=== PATIENT | male | born 1940 | race Caucasian/White ===

== ENCOUNTER 2021-12-26 10:24 | Inpatient (IN) | payer BC, MEDICAID ==
[~2021-12-26] VITALS: Ht 167.6 cm; Wt 61.3 kg
[2021-12-26] MEDS ORDERED: SODIUM CHLORIDE 0.9% 1000ML BAG (SEPSIS BOLUS) IV ONE (10:45)
[2021-12-26 11:27] LABS: BASOPHILS % 0.7 % (0.0-2.0); EOSINOPHILS % 2.6 % (0.0-5.0); HEMATOCRIT. 30.4 % (42.0-52.0); HEMOGLOBIN. 10.5 g/dL (14.0-18.0); LYMPHOCYTES % 12.8 % (20.0-50.0); MEAN CORPUSCULAR HEMOGLOBIN 31.8 pg (28.0-32.0); MEAN CORPUSCULAR VOLUME 91.7 fL (80.0-94.0); MEAN PLATELET VOLUME 8.1 fl (7.4-10.4); MONOCYTES % 10.3 % (2.0-8.0); NEUTROPHILS % 73.6 % (40.0-76.0); PLATELET 217 x1000/uL (130-400); RED BLOOD CELL COUNT 3.31 mill/uL (4.7-6.1)
[2021-12-26 11:35] LABS: CHLORIDE 107 mEq/L (98-107)
[2021-12-26 13:23] LABS: CLARITY URINE CLEAR (CLEAR); COLOR URINE YELLOW (YELLOW); KETONES URINE NEGATIVE (NEGATIVE); LEUKOCYTE ESTERASE URINE NEGATIVE (NEGATIVE); NITRITE URINE NEGATIVE (NEGATIVE); OCCULT BLOOD URINE TRACE (NEGATIVE); PROTEIN URINE 3+ (NEGATIVE); SPECIFIC GRAVITY URINE 1.011 (1.005-1.030); UROBILINOGEN URINE 0.2 E.U./dL (0.2-1.0)
[2021-12-26] MEDS ORDERED: ACETAMINOPHEN 325MG TABLET PO PRN (14:15)
[2021-12-26] MEDS ORDERED: ONDANSETRON HCL 4MG/2ML INJ IV PRN (14:15)
[2021-12-26] MEDS: SODIUM CHLORIDE 0.9% 1,000 ML IV SCH (14:30)
[2021-12-26] MEDS ORDERED: SODIUM POLYSTYRENE SULFONATE 15 G/60 ML BOT PO NR (14:30)
[2021-12-26] MEDS: AMLODIPINE 10MG TABLET PO SCH (14:53)
[2021-12-27 00:30] VITALS: BP 192/99
[2021-12-27 00:49] VITALS: BP 192/99
[2021-12-27] MEDS ORDERED: CLONIDINE 0.1MG TABLET PO PRN (01:00)
[2021-12-27] MEDS ORDERED: TOPUD MT (01:14)
[2021-12-27] MEDS ORDERED: LIDO30CR TP (01:14)
[2021-12-27] MEDS ORDERED: FURO20TA4 MT (01:14)
[2021-12-27 04:00] VITALS: BP 153/50
[2021-12-27] MEDS: SODIUM CHLORIDE 0.9% 1,000 ML IV SCH ×2 (05:00→15:55)
[2021-12-27 07:42] LABS: BASOPHILS % 0.9 % (0.0-2.0); EOSINOPHILS % 3.9 % (0.0-5.0); HEMATOCRIT. 27.6 % (42.0-52.0); HEMOGLOBIN. 9.5 g/dL (14.0-18.0); LYMPHOCYTES % 14.3 % (20.0-50.0); MEAN CORPUSCULAR HEMOGLOBIN 31.6 pg (28.0-32.0); MEAN CORPUSCULAR VOLUME 91.6 fL (80.0-94.0); NEUTROPHILS % 69.9 % (40.0-76.0); PLATELET 184 x1000/uL (130-400); RED BLOOD CELL COUNT 3.02 mill/uL (4.7-6.1); RED CELL DISTRIBUTION WIDTH 12.8 % (11.6-14.6)
[2021-12-27] MEDS: AMLODIPINE 10MG TABLET PO SCH (09:02)
[2021-12-27] MEDS: CITRIC ACID/SODIUM CITRATE SOLN 30ML UDC PO SCH ×2 (09:03→15:53)
[2021-12-27 12:08] LABS: BG BASE EXCESS -4.3 mmol/L (-2.0-2.0); BG CARBOXYHEMOGLOBIN 0.3 % (0.5-1.5); BG DEOXYHEMOGLOBIN 2.6 % (0.0-5.0); BG FRACTION INSPIRED OXYGEN 21; BG HCO3 ACT 20.7 mmol/L (22.0-26.0); BG OXYGEN SATURATION 97.4 % (92.0-98.5); BG OXYHEMOGLOBIN 97.1 % (94.0-97.0); BG PCO2 37.6 mmHg (35.0-45.0); BG PH 7.359 (7.350-7.450); BG PO2 110.4 mmHg (75.0-100.0); BG SAMPLE SITE RIGHT RADIAL; BG TOTAL HEMOGLOBIN 9.1 g/dL (12.0-18.0); BG VENT MODE ROOM AIR
[2021-12-27 16:02] VITALS: BP 143/62
[2021-12-27 16:25] LABS: PROTHROMBIN TIME 10.8 sec (9.6-11.0)
== END 2021-12-27 18:30 | disposition home or self-care (01) | DRG 74 ==
LOC: ER 10:24 → 5WST 13:10 → ENRESERV 19:45
PROVIDERS: ADMIT Internal Medicine; ATTEND Internal Medicine
DX: G90.9 Disorder of the autonomic nervous system, unspecified (principal); N17.9 Acute kidney failure, unspecified; E44.1 Mild protein-calorie malnutrition; D64.9 Anemia, unspecified; E11.22 Type 2 diabetes mellitus with diabetic chronic kidney disease; E87.5 Hyperkalemia; I51.7 Cardiomegaly; J44.9 Chronic obstructive pulmonary disease, unspecified; R74.01 Elevation of levels of liver transaminase levels; I95.9 Hypotension, unspecified; N18.9 Chronic kidney disease, unspecified; I12.9 Hypertensive chronic kidney disease with stage 1 through stage 4 chronic kidney disease, or unspecified chronic kidney disease; Z79.899 Other long term (current) drug therapy; Z91.15 Patient's noncompliance with renal dialysis; Z68.21 Body mass index [BMI] 21.0-21.9, adult
CPT/HCPCS: 36415; 36600; 71045; 76700; 80048; 80053; 81003; 82375; 82805; 83605; 84145; 84484; 85025; 93005; 97161; 99285; J7030

== ENCOUNTER 2025-07-14 10:51 | Inpatient (IN) | payer MEDICARE, MEDICAID ==
[2025-07-14] VITALS (23 sets, daily range): BP systolic 108–235; BP diastolic 49–163; PULSE 42–90; RESP 13–25; TEMP 36.4–37.1; O2SAT 95–99
[~2025-07-14] VITALS: Ht 167.6 cm; Wt 66.4 kg
[~2025-07-14 10:51] MED LIST: ALBU2.5V13; ALBUTEROL; CLON0.5T4 PO; CYAN-50 PO; FLUT1BLS3 PO; FOLI0.4T6 PO; FURO80TA3 PO; GABA-1180 PO; GABA-529 PO; ISOS60TA76 PO; LABE100T9 PO; LABE300T36 PO; LIDO30CR TP; LOSA100T33 PO; MIDO5TAB4 PO; PATI8.4P PO; TAMSULOSIN; TOPUD MT
[2025-07-14] MEDS: CALCIUM GLUCONATE 1GM PREMIX 50 ML IV ONE (11:33)
[2025-07-14] MEDS: CALCIUM GLUCONATE 100MG/ML 10ML VIAL IV ONE (11:36)
[2025-07-14 12:41] LABS: BASOPHILS % 0.8 % (0.0-2.0); EOSINOPHILS % 2.3 % (0.0-5.0); HEMATOCRIT. 31.9 % (42.0-52.0); HEMOGLOBIN. 10.4 g/dL (14.0-18.0); LYMPHOCYTES % 22.5 % (20.0-50.0); MEAN PLATELET VOLUME 9.0 fl (7.4-10.4); MONOCYTES % 7.3 % (2.0-8.0); NEUTROPHILS % 67.1 % (40.0-76.0); PLATELET 117 x1000/uL (130-400); RED BLOOD CELL COUNT 3.18 mill/uL (4.7-6.1); RED CELL DISTRIBUTION WIDTH 14.7 % (11.6-14.6)
[2025-07-14] MEDS: ATROPINE SULFATE 1MG/ML VIAL IV ONE (12:46)
[2025-07-14 12:59] LABS: UREA NITROGEN BLOOD 43 mg/dL (9-23)
[2025-07-14 13:01] LABS: TROPONIN I HIGH SENSITIVITY 25 ng/L (3.0-53)
[2025-07-14 13:27] LABS: CREATININE 7.3 mg/dL (0.6-1.3)
[2025-07-14] MEDS: DEXTROSE 50% WATER 50ML SYRINGE IV ONE (14:15)
[2025-07-14] MEDS: INSULIN REGULAR (HUMULIN R) 1000UNITS/10ML VIAL IV ONE (14:16)
[2025-07-14 15:55] LABS: TROPONIN I HIGH SENSITIVITY 26 ng/L (3.0-53)
[2025-07-14] MEDS ORDERED: ONDANSETRON HCL 4MG/2ML INJ IV PRN (18:30)
[2025-07-14] MEDS ORDERED: LABETALOL HCL 100MG TABLET PO SCH (18:30)
[2025-07-14] MEDS ORDERED: ACETAMINOPHEN 325MG TABLET PO PRN (18:30)
[2025-07-14] MEDS: CLONIDINE 0.1MG TABLET PO PRN (20:11)
[2025-07-14] MEDS: HYDRALAZINE 20MG/ML VIAL IV PRN (22:19)
[2025-07-14] MEDS: PAMIDRONATE DISODIUM 90 MG in SODIUM CHLORIDE 0.9% 1,000 ML IV SCH (23:22)
[2025-07-15] VITALS (18 sets, daily range): BP systolic 100–182; BP diastolic 43–148; PULSE 56–91; RESP 12–33; TEMP 36.7–37.3; O2SAT 95–99
[2025-07-15] MEDS: GABAPENTIN 100MG CAPSULE PO PRN (00:55)
[2025-07-15] MEDS: HYDRALAZINE 20MG/ML VIAL IV NR (01:07)
[2025-07-15 06:08] LABS: UREA NITROGEN BLOOD 27 mg/dL (9-23)
[2025-07-15 06:10] LABS: ASPARTATE AMINOTRANSFERASE 22 IU/L (<34); BILIRUBIN TOTAL 0.5 mg/dL (0.1-1.0); PROTEIN TOTAL 6.9 g/dL (6.0-8.3)
[2025-07-15 06:43] LABS: HEPATITIS A AB IGM NEGATIVE (Negative)
[2025-07-15 06:44] LABS: HEPATITIS B CORE AB IGM NEGATIVE (Negative); HEPATITIS C AB NON REACTIVE (Neg) (Negative); PLATELET 109 x1000/uL (130-400); RED BLOOD CELL COUNT 3.03 mill/uL (4.7-6.1); RED CELL DISTRIBUTION WIDTH 14.2 % (11.6-14.6)
[2025-07-15 06:46] LABS: CREATININE 5.5 mg/dL (0.6-1.3)
[2025-07-15] MEDS: HEPARIN 5000 UNITS/ML VIAL SUBCUT SCH (08:27)
[2025-07-15] MEDS: CYANOCOBALAMIN 1000MCG TABLET PO SCH (08:28)
[2025-07-15] MEDS: ISOSORBIDE MONONITRATE 60MG TABLET SR 24HR PO SCH (08:30)
[2025-07-15] MEDS: AMLODIPINE 5MG TABLET PO SCH (08:30)
[2025-07-16] VITALS (15 sets, daily range): BP systolic 86–150; BP diastolic 48–88; PULSE 49–80; RESP 13–20; TEMP 36.16956–36.8; O2SAT 95–99
[2025-07-16 08:36] LABS: UREA NITROGEN BLOOD 45 mg/dL (9-23)
[2025-07-16 08:37] LABS: BASOPHILS % 0.8 % (0.0-2.0); EOSINOPHILS % 2.9 % (0.0-5.0); HEMATOCRIT. 27.7 % (42.0-52.0); HEMOGLOBIN. 9.3 g/dL (14.0-18.0); LYMPHOCYTES % 20.3 % (20.0-50.0); MEAN PLATELET VOLUME 9.5 fl (7.4-10.4); MONOCYTES % 11.0 % (2.0-8.0); NEUTROPHILS % 65.0 % (40.0-76.0); PLATELET 95 x1000/uL (130-400); RED BLOOD CELL COUNT 2.82 mill/uL (4.7-6.1); RED CELL DISTRIBUTION WIDTH 14.4 % (11.6-14.6)
[2025-07-16 08:38] LABS: ASPARTATE AMINOTRANSFERASE 18 IU/L (<34)
[2025-07-16 08:39] LABS: BILIRUBIN TOTAL 0.3 mg/dL (0.1-1.0); PROTEIN TOTAL 6.6 g/dL (6.0-8.3)
[2025-07-16 08:52] LABS: CREATININE 7.7 mg/dL (0.6-1.3)
[2025-07-16] MEDS ORDERED: AMLO5TAB88 PO (10:41)
[2025-07-16] MEDS: ACETAMINOPHEN 325MG TABLET PO PRN (16:29)
[2025-07-16] MEDS ORDERED: AMLO5TAB6 MT (17:05)
[2025-07-16 17:26] LABS: INR 1.0
== END 2025-07-16 17:37 | disposition home or self-care (01) | DRG 640 ==
LOC: ER 10:56 → EDBEDREQ 13:41 → EDBEDREQSVC 13:41 → EDBEDREQTM 13:41 → ENRESERV 14:20 → EDBEDREQSVC 14:50 → ENRESERV 16:25 → 5EST 16:52
PROVIDERS: ADMIT Internal Medicine; ATTEND Internal Medicine
PROC: 5A1D70Z Performance of Urinary Filtration, Intermittent, Less than 6 Hours Per Day (ICD-10-PCS; principal; 2025-07-14)
PROC: 5A1D70Z Performance of Urinary Filtration, Intermittent, Less than 6 Hours Per Day (ICD-10-PCS; 2025-07-16)
DX: E87.5 Hyperkalemia (principal); N18.6 End stage renal disease; I12.0 Hypertensive chronic kidney disease with stage 5 chronic kidney disease or end stage renal disease; D64.9 Anemia, unspecified; E78.5 Hyperlipidemia, unspecified; E83.52 Hypercalcemia; Z79.899 Other long term (current) drug therapy; Z99.2 Dependence on renal dialysis
CPT/HCPCS: 36415; 71045; 80048; 80053; 82330; 82378; 82962; 83970; 84132; 84484; 85025; 85027; 86705; 86709; 87340; 90935; 93005; 96365; 96375; 99291; A4606; J0360; J0612; J1644; J1815; J2430; J7030